=== PATIENT | female | born 1985 | race Caucasian/White ===

== ENCOUNTER 2021-03-02 14:41 | Emergency (ER) | payer BC, MEDICAID, SELFPAY ==
[2021-03-02 15:05] VITALS: BP 124/81; PULSE 93; RESP 16; TEMP 36.8; O2SAT 98; BMI 25.0
[2021-03-02 16:12] VITALS: RESP 15
--- NOTE | 2021-03-02 16:20 | XRR_ITS ---
PROCEDURE INFORMATION: Exam: XR Thoracic Spine Exam date and time: 03/02/2021 4:22 PM Age: 35 years old Clinical indication: Pain in thoracic spine; Additional info: Fall with back pain TECHNIQUE: Imaging protocol: XR of the thoracic spine. Views: 3 views. COMPARISON: No relevant prior studies available. FINDINGS: Bones/joints: Normal. No acute fracture. Normal alignment. Soft tissues: Unremarkable. XR/XR thoracic spine 3V* [id number] IMPRESSION: No acute findings.
--- NOTE | 2021-03-02 16:20 | XRR_ITS ---
PROCEDURE INFORMATION: Exam: XR Cervical Spine Exam date and time: 03/02/2021 5:02 PM Age: 35 years old Clinical indication: Neck pain; Additional info: Fall with neck pain TECHNIQUE: Imaging protocol: XR of the cervical spine. Views: 2 or 3 views. COMPARISON: No relevant prior studies available. FINDINGS: Bones/joints: Normal. No acute fracture. Normal alignment. Soft tissues: Unremarkable. XR/XR cervical spine 3V* 33481 IMPRESSION: No acute findings.
--- NOTE | 2021-03-02 16:30 | ED_ITS ---
Documented by User: PHILLIP Mukherjee 03/03/21 07:17 HPI - Neck Pain/Injury General: Chief Complaint: Neck Pain/Injury Stated Complaint: NECK PAIN Time Seen by Provider: 03/02/21 15:19 History of Present Illness: HPI Narrative: Patient is a 35-year-old female comes to the ED with neck and mid back pain after fall. Patient says 4 days ago she fell going down some steps and her mid back hit the edge of the steps and her neck also hit the steps. She denies any loss of consciousness. She says her pain has just gotten worse and her neck is gotten more stiff over the past couple days. She says it hurts for her to rotate her head from side to side. She rates her pain a 10 out of 10. Denies any pain radiating down into upper extremities, numbness to upper extremities. She says she has been taking Tylenol and ibuprofen for the past couple days to help with pain. Associated symptoms: Denies headache(s) or nausea Review of Systems Const: Denies: fever(s), chills or fatigue Eyes: Denies: change in vision or eye discomfort ENMT: Denies: throat pain, odynophagia, nasal discharge or nasal congestion Card: Denies: chest pain, palpitations, edema, swelling of feet/ankles, dyspnea on exertion or orthopnea Resp: Denies: dyspnea, productive cough or non-productive cough GI: Denies: abdominal pain, nausea, vomiting, diarrhea, constipation or hematochezia : Denies: flank pain, dysuria or hematuria Musc: Reports: neck pain and back pain; Denies: extremity swelling Skin/Breast: Denies: rash or new lesions Neuro: Denies: headache(s), numbness in extremities or weakness in extremities [facility] ED Female Reproductive History: Date of last menstrual period: 02/22/21 Physical Exam Const: COMMON NORMALS: no acute distress, patient oriented x3 and alert GENERAL APPEARANCE: cooperative and comfortable HENMT: COMMON NORMALS: normocephalic HEAD & SCALP: normocephalic MOUTH: Normal oral and palatal mucosa present THROAT: posterior oropharynx normal and uvula midline Neck/C-Spine: COMMON NORMALS: supple GENERAL: Yes normal visual inspection CERVICAL SPINE: Yes pain with cervical ROM with rotation to the right and with rotation to the left, Yes Cervical spine tenderness C5, C6 and C7, Yes Paracervical muscle tenderness bilateral and Yes Trapezius muscle tenderness bilateral Resp: COMMON NORMALS: normal respiratory effort, No retractions, No use of accessory muscles and clear to auscultation bilaterally AUSCULTATION: clear to auscultation bilaterally Cardio: COMMON NORMALS: regular rate, regular rhythm, S1 normal heart sound present, S2 normal heart sound present, No gallops present (Cardio), No clicks present (Cardio), No murmurs present (Cardio) and Peripheral pulses 2+ throughout RATE: regular rate RHYTHM: regular rhythm HEART SOUNDS: S1 normal heart sound present and S2 normal heart sound present PERIPHERAL PULSES: Peripheral pulses 2+ throughout GI: COMMON NORMALS: Normal to inspection, nondistended, normoactive bowel sounds present, Soft to palpation, non-tender and no masses PALPATION: Yes Soft to palpation : COMMON NORMALS: Yes no CVA tenderness BLADDER/KIDNEY EXAM: Yes no CVA tenderness Back/Pelvis: COMMON NORMALS: no CVA tenderness THORACIC SPINE/UPPER BACK: No thoracic spinal tenderness and Yes paraspinal muscle tenderness Thoracic paraspinal muscle tenderness: bilateral Extremity: COMMON NORMALS: normal to inspection and full ROM Neuro: COMMON NORMALS: patient oriented x3 and moves all extremities SENSORIUM/ORIENTATION: Yes alert SPEECH: speech normal GAIT: Yes Normal gait present Skin: GENERAL SKIN EXAM: dry skin Course Vital Signs: Vital signs: Vital Signs Temperature 98.3 F 03/02/21 15:05 Pulse Rate 93 03/02/21 15:05 Respiratory Rate 15 03/02/21 18:02 Blood Pressure 124/81 03/02/21 15:05 Pulse Oximetry 98 03/02/21 15:05 MDM - Neck Pain/Injury MDM Narrative: Medical decision making narrative: Patient is a 35-year-old female who comes to the ED with back and neck pain after having a fall. Patient appears nontoxic and in no acute distress or pain. She has some cervical muscle tenderness and paraspinal muscle tenderness. I transferred care of patient over to Racquel Varela NP at 5 PM and told her I was only waiting on x-ray results to discharge her. x-rays of the cervical and thoracic spine showed no acute fractures or findings. Patient is a diabetic and was wanting to check her blood glucose level checked here in the ED. Patient's blood glucose was 584. Racquel Denevan FAST FOOD ATTENDANT wanted to start a hyperglycemia work-up on patient. She refused to have any hyperglycemia work-up done here in the ED. She says she has her in sulin at home and she will take it when she gets home. She was encouraged to come back to the ED immediately if he starts having any hyperglycemia symptoms. Patient was sent home with a prescription for ibuprofen and Flexeril. Patient left AGAINST MEDICAL ADVICE with an elevated blood sugar. Lab Data: Labs: Lab Results 03/02/21 Range/Units 17:12 POC Glucose 584 H* (70-110) mg/dL Imaging Data^: Xray Ortho: Attestation: I personally reviewed and interpreted this imaging study as follows: Radiologist's impression: [id number] [facility], [place] [address]UVsu ReportSigned Patient: Yolande Sargent #: [id number]: 1985Acct#:[id number]/Sex: 35 / FADM Date: 03/02/21Loc: ERRoom/Bed:Attending Dr: Ordering Provider/Ordering MD: Ross Torres Date of Service: 03/02/21 Procedure(s): XR thoracic spine 3V* 60990 Accession Number(s): [id number] Report Number: [id number] PROCEDURE INFORMATION: Exam: XR Thoracic Spine Exam date and time: 03/02/2021 4:22 PM Age: 35 years old Clinical indication: Pain in thoracic spine; Additional info: Fall with back pain TECHNIQUE: Imaging protocol: XR of the thoracic spine. Views: 3 views. COMPARISON: No relevant prior studies available. FINDINGS: Bones/joints: Normal. No acute fracture. Normal alignment. Soft tissues: Unremarkable. XR/XR thoracic spine 3V* [id number] IMPRESSION: No acute findings. Dictated By:Sunil Rivas MDSigned By:Sunil Rivas MDSigned Date/Time:03/02/21 1740DD/ [address] [address]SMki ReportSigned Patient: Yolande Sargent #: [id number]: 1985Acct#:[id number]/Sex: 35 / FADM Date: 03/02/21Loc: ERRoom/Bed:Attending Dr: Ordering Provider/Ordering MD: Ross Torres Date of Service: 03/02/21 Procedure(s): XR cervical spine 3V* [id number] Accession Number(s): [id number] Report Number: [id number] PROCEDURE INFORMATION: Exam: XR Cervical Spine Exam date and time: 03/02/2021 5:02 PM Age: 35 years old Clinical indication: Neck pain; Additional info: Fall with neck pain TECHNIQUE: Imaging protocol: XR of the cervical spine. Views: 2 or 3 views. COMPARISON: No relevant prior studies available. FINDINGS: Bones/joints: Normal. No acute fracture. Normal alignment. Soft tissues: Unremarkable. XR/XR cervical spine 3V* [id number] IMPRESSION: No acute findings. Dictated By:Sunil Rivas MDSigned By:Sunil Rivas MDSigned Date/Time:03/02/21D/ 38 Discharge Plan Discharge Patient Disposition: Home Clinical Impression: Strain of neck muscle Qualifiers: Encounter type: initial encounter Qualified Code(s): S16.1XXA - Strain of muscle, fascia and tendon at neck level, initial encounter Condition: Stable Prescriptions: New ibuprofen 800 mg tablet 800 mg PO TID Qty: 30 RF: 0 cyclobenzaprine 10 mg tablet 10 mg PO TID Qty: 14 RF: 0 Discharge Orders: Discharge ED (Routine); Ordered 03/02/21 Ordered By: Racquel Varela Discharge Diet: Advance as tolerated Discharge Activity: Resume usual activity Patient Instructions: Cervical Spine Strain (ED), Opioid Safety Activity Restrictions/Additional Instructions: Take meds as directed Pleae take your insulin as soon as you get to car since you do not want a work up based on hyperglycemia Return to the emergency department if: You have pain, numbness, tingling, or weakness of your arms, legs, face, or scalp. You have shortness of breath, a hoarse voice, or problems swallowing. Coding Level of Care Code ED Log Truck Driver for Chg Fwd Exam Comprehensive Documented by User: Racquel Varela 03/02/21 17:52 HPI - Neck Pain/Injury General: Chief Complaint: Neck Pain/Injury Stated Complaint: NECK PAIN Time Seen by Provider: 03/02/21 15:19 Course Vital Signs: Vital signs: Vital Signs Temperature 98.3 F 03/02/21 15:05 Pulse Rate 93 03/02/21 15:05 Respiratory Rate 15 03/02/21 18:02 Blood Pressure 124/81 03/02/21 15:05 Pulse Oximetry 98 03/02/21 15:05 MDM - Neck Pain/Injury 2 Lab Data: Labs: Lab Results 03/02/21 Range/Units 17:12 POC Glucose 584 H* (70-110) mg/dL Discharge Plan Discharge Patient Disposition: Home Clinical Impression: Strain of neck muscle Qualifiers: Encounter type: initial encounter Qualified Code(s): S16.1XXA - Strain of muscle, fascia and tendon at neck level, initial encounter Condition: Stable Prescriptions: New ibuprofen 800 mg tablet 800 mg PO TID Qty: 30 RF: 0 cyclobenzaprine 10 mg tablet 10 mg PO TID Qty: 14 RF: 0 Discharge Orders: Discharge ED (Routine); Ordered 03/02/21 Ordered By: Racquel Varela Discharge Diet: Advance as tolerated Discharge Activity: Resume usual activity Patient Instructions: Cervical Spine Strain (ED), Opioid Safety Activity Restrictions/Additional Instructions: Take meds as directed Pleae take your insulin as soon as you get to car since you do not want a work up based on hyperglycemia Return to the emergency department if: You have pain, numbness, tingling, or weakness of your arms, legs, face, or scalp. You have shortness of breath, a hoarse voice, or problems swallowing. Coding Level of Care Code ED Log Truck Driver for Dre Fwd Exam Comprehensive
[2021-03-02] MEDS: HYDROcodone-acetaminophen 7.5-325 mg Tablet 1 TAB PO (16:44)
[2021-03-02 17:15] LABS: Glucose Point of Care 584 mg/dL (70-110)
[2021-03-02 18:02] VITALS: RESP 15
== END 2021-03-02 18:03 | disposition home or self-care (01) ==
PROVIDERS: Emergency Provider Registered Nurse
DX: S16.1XXA Strain of muscle, fascia and tendon at neck level, initial encounter (principal); W10.8XXA Fall (on) (from) other stairs and steps, initial encounter
CPT/HCPCS: 36416; 72040; 72072; 82962; 99283